=== PATIENT | male | born 1970 | race Caucasian/White ===

== ENCOUNTER 2017-08-06 15:22 | Emergency (ER) | payer OTHER ==
[2017-08-06 15:29] VITALS: BP 145/107; PULSE 82; RESP 18; TEMP 98.2; O2SAT 95
--- NOTE | 2017-08-06 15:54 | EDPHY ---
General Narrative: CHIEF COMPLAINT: Left pinky finger laceration HISTORY OF PRESENT ILLNESS: Patient complains of left pinky laceration. This happened 1 hour ago. He was cutting apples in his kitchen with a kitchen knife. He accidentally cut the left pinky finger tip. This is on the volar aspect. Minimally painful. Moderate bleeding. Stop with pressure. Some throbbing at the site of laceration with palpation and movement. No complaint rest. No foreign body. No trauma elsewhere. Tetanus is up-to-date less than 3 years ago. 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 Symmetric radial pulses 2+. Brisk cap refill Neurological: A&O, sensory symmetric, interossei strength symmetric Skin: Warm and dry, no rash. 1.5 cm curvilinear laceration of the left pinky finger, volar over the distal phalanx. No involvement of the nail. No exposure of the tendon. No foreign body. Extremities: Tenderness of the left pinky finger over the laceration. Full flexion extension retained. Neurovascular intact with brisk cap refill of the affected finger. DIFFERENTIAL DIAGNOSES: Including but not limited to finger tip laceration, finger tip avulsion, laceration with tendon injury, laceration complication MDM: 3:50 p.m. Laceration of the left pinky distal phalanx. No involvement of the nail. No apparent tendon injury. No pulsatile bleeding. I have administered a digital block. Proceed with irrigation and closure. No indication for x-ray at this time. Tetanus is up-to-date. 4:35 p.m. Finger tip laceration that has been repaired. This is a questionable area of skin flap that may not survive this suture repair. However this will provide good infection control for the patient. He suture repaired without complication. Tolerated well. Wound care discussed. Tube gauze will be placed. This is a 2 day dressing. ED precautions discussed. Return here in 7- 10 days for suture removal. PROCEDURE: Digital Block Indication: Finger laceration Consent: Verbal Location: Left pinky finger Anesthesia: Lidocaine 1% plain, 0.25% Marcaine plain, 5mL Description: Base of the finger was prepped. The above was infused without difficulty. Tolerated well. Good anesthesia. Complications: None PROCEDURE: Laceration repair Consent: Verbal Location: Left pinky finger, distal phalanx, volar Length of repair: 1.5 cm Complexity: Simple Layer involvement: Single Anesthesia: Digital block Irrigation: Extensive Debridement: None Procedure description: Following good anesthesia, the wound was copiously irrigated. Wound bed was explored and there is no foreign body noted. Wound borders were approximated well with good hemostasis. Tolerated well without complication. Suture/Staple material: 5-0 Ethilon, 5 simple interrupted sutures Wound care: Routine as discussed Suture/Staple removal: 7-10 Days ED Precautions: Worsening pain. Erythema, edema, cyanosis, pallor, paresthesia or anesthesia. - History Smoking Status: Never smoked - Objective Vital Signs: Initial Vital Signs Temperature (C) 98.2 F 08/06/17 15:26 Heart Rate 82 08/06/17 15:26 Respiratory Rate 18 08/06/17 15:26 Blood Pressure 145/107 H 08/06/17 15:26 O2 Sat (%) 95 08/06/17 15:26 O2 Delivery Mode Room Air Allergies/Adverse Reactions: Penicillins Allergy (Verified 08/06/17 15:25) Home Medications: Medication Instructions Recorded Hydrocodone/Acetaminophen [Ennice 1 each PO Q4-6PRN PRN #7 tablet 08/06/17 7.5-325 Tablet] Departure - Departure Disposition: Home, Routine, Self-Care Clinical Impression: Laceration of left little finger Qualifiers: Encounter type: initial encounter Damage to nail status: without damage Foreign body presence: without foreign body Qualified Code(s): S61.217A - Laceration without foreign body of left little finger without damage to nail, initial encounter Condition: Good Instructions: Care For Your Stitches (ED), Laceration (ED) Additional Instructions: 1. Daily wound care as discussed 2. Keep the dressing in place for 2 days and then remove and replace dressing once daily 3. ED precautions as discussed for signs of infection should that develop 4. Return to emergency department or primary care physician for suture removal in 7-10 days Referrals: Hanh Fay, RELATIONSHIP ADVISOR [Primary Care Provider] - As per Instructions Prescriptions: Hydrocodone/Acetaminophen [Ennice 7.5-325 Tablet] 1 each PO Q4-6PRN PRN #7 tablet PRN Reason: Pain, Moderate
== END 2017-08-06 16:48 | disposition home or self-care (01) ==
PROC: 0HQGXZZ Repair Left Hand Skin, External Approach (ICD-10-PCS; principal; 2017-08-06)
DX: S61.217A Laceration without foreign body of left little finger without damage to nail, initial encounter (principal); W26.0XXA Contact with knife, initial encounter; Y92.010 Kitchen of single-family (private) house as the place of occurrence of the external cause; Y99.8 Other external cause status; Y93.G1 Activity, food preparation and clean up